=== PATIENT | female | born 1965 | race Caucasian/White ===

== ENCOUNTER 2017-06-09 09:12 | Day surgery (SDC) | payer MEDICAID ==
[2017-05-19 09:39] VITALS: BMI 29.9
[2017-06-09] MEDS ORDERED: Lactated Ringer's 1,000 ML IV ONE (09:27)
[2017-06-09] MEDS ORDERED: Propofol 10 mg/ml Inj (20 ML) ONE (11:15)
[2017-06-09] MEDS ORDERED: Midazolam 2 MG/2 ML VIAL ONE (11:15)
[2017-06-09] MEDS ORDERED: Etomidate 20 mg/10ml Inj IV ONE (11:15)
[2017-06-09 11:36] VITALS: TEMP 97.6
[2017-06-09 11:47] VITALS: O2SAT 100
[2017-06-09 11:51] VITALS: BP 110/82; PULSE 68; RESP 22
== END 2017-06-09 12:14 | disposition home or self-care (01) ==
LOC: H.ENDO 09:12
PROVIDERS: ATTEND Internal Medicine Gastroenterology
DX: Z12.11 Encounter for screening for malignant neoplasm of colon (principal); K64.8 Other hemorrhoids; K64.4 Residual hemorrhoidal skin tags; I10 Essential (primary) hypertension; K21.9 Gastro-esophageal reflux disease without esophagitis; F41.8 Other specified anxiety disorders
CPT/HCPCS: 45378; J2250; J2704; J7120